=== PATIENT | female | born 1985 | race Caucasian/White ===

== ENCOUNTER 2016-10-21 19:26 | Observation (INO) | payer OTHER ==
--- NOTE | 2016-10-21 19:36 | EDPHY ---
H & P Time Seen by Provider: 10/21/16 19:32 HPI/ROS: CHIEF COMPLAINT: Allergic reaction. HISTORY OF PRESENT ILLNESS: The patient is a 31-year-old female, 22 weeks , presenting with an allergic reaction. The patient ate teddy just prior to arrival and almost immediately developed lip and tongue swelling, associated with hoarseness of her voice and chest tightness. Associated with itching of her palms, soles and ears. No rash. Prior allergic reaction have consisted of itching palms and feet. No prior episodes of anaphylaxis. REVIEW OF SYSTEMS: A comprehensive 10 point review of systems is otherwise negative aside from elements mentioned in the history of present illness. Past Medical/Surgical History: Currently 22 weeks . Social History: . Nonsmoker. Physical Exam: General Appearance: Alert, anxious Eyes: Pupils equal and round, no periorbital swelling ENT, Mouth: Mucous membranes moist, Mild lip and tongue swelling, voice is hoarse. Neck: Normal inspection, no stridor Respiratory: Lungs are clear to auscultation, no wheezing Cardiovascular: Regular rate and rhythm Neurological: A&O, nonfocal exam Skin: NO hives Extremities: No swelling Psychiatric: Mood and affect normal Constitutional: Initial Vital Signs Temperature (C) 36.8 C 10/21/16 19:27 Heart Rate 109 H 10/21/16 19:27 Respiratory Rate 20 10/21/16 19:27 Blood Pressure 112/78 10/21/16 19:27 O2 Sat (%) 96 10/21/16 19:27 O2 Delivery Mode Room Air O2 (L/minute) 2 Allergies/Adverse Reactions: No Known Allergies Allergy (Unverified 10/21/16 19:40) Home Medications: Medication Instructions Recorded Aspirin [Aspirin 81mg (*)] 81 mg PO DAILY 10/21/16 EPINEPHRINE [EPIPEN] 0.3 mg IM ONCE #2 syr 10/21/16 Vit27&Calcium/Iron/FA 1 each PO DAILY 10/21/16 [ Rx 1 Tablet (RX)] predniSONE 40 mg PO DAILY #6 tab 10/21/16 Medical Decision Making ED Course/Re-evaluation: This patient presents with anaphylaxis. Patient received epinephrine IM. Benadryl and Solu-Medrol IV given. Albuterol neb given. I will continue to monitor the patient. heart tones: 150 8:15 p.m.: I reevaluated the patient, she is feeling much better, the swelling has resolved. She has intermittent abdominal cramping and is concerned about uterine contractions. Repeat heart tones 150s. 9:15 p.m.; the patient continues to feel much better and she has no recurrent swelling. She has occasional abdominal cramping. + movement. She will be sent to [facility] for monitoring. Differential Diagnosis: Differential diagnosis includes though it is not limited to laryngeal edema, bronchospasm, hypotension, angioedema. - Data Points Medications Given: Discontinued Medications Albuterol (Proventil Neb) 3 ml IH EDNOW ONE Stop: 10/21/16 19:43 Last Admin: 10/21/16 19:42 Dose: 3 ml Diphenhydramine HCl (Benadryl Injection) 25 mg IVP EDNOW ONE Stop: 10/21/16 19:43 Last Admin: 10/21/16 19:42 Dose: 25 mg Epinephrine HCl (Epinephrine) 0.3 mg IM EDNOW ONE Stop: 10/21/16 19:43 Last Admin: 10/21/16 19:42 Dose: 0.3 mg Methylprednisolone Sodium Succinate (Solu-Medrol) 125 mg IVP EDNOW ONE Stop: 10/21/16 19:43 Last Admin: 10/21/16 19:42 Dose: 125 mg Ranitidine HCl (Zantac) 50 mg IVP EDNOW ONE Stop: 10/21/16 19:43 Last Admin: 10/21/16 19:42 Dose: 50 mg Departure - Departure Disposition: Home, Routine, Self-Care Clinical Impression: Anaphylaxis Qualifiers: Encounter type: initial encounter Qualified Code(s): T78.2XXA - Anaphylactic shock, unspecified, initial encounter Condition: Good Instructions: Anaphylaxis (ED) Additional Instructions: Take Claritin in the morning and Benadryl at night while symptoms persist. Take the Prednisone tomorrow only if you have residual symptoms from the allergic reaction. Followup with your primary care physician as needed. Referrals: Juli Tate CNM [Certified Nurse Communication Center Coordinator] - As per Instructions Prescriptions: EPINEPHRINE [EPIPEN] 0.3 mg IM ONCE #2 syr predniSONE 40 mg PO DAILY #6 tab Report Scribed for: Majo Patterson Report Scribed by: Radha Pinedo Date of Report: 10/21/16 Time of Report: 19:36 Physician Review and Approval Statement: 10/21/16 19:36 Portions of this note were transcribed by a medical billing and coding specialist. I personally performed the history, physical exam, and medical decision-making; and confirmed the accuracy of the information in the transcribed note.
[2016-10-21 19:40] VITALS: TEMP 98.2
[2016-10-21] MEDS ORDERED: ALBUTEROL 3 ML DEYVIAL IH ONE (19:42)
[2016-10-21] MEDS ORDERED: RANITIDINE 50 MG/2 ML VIAL IVP ONE (19:42)
[2016-10-21] MEDS ORDERED: methylPREDNISolone SOD SUCC 125 MG/2 ML VIAL IVP ONE (19:42)
[2016-10-21 20:34] VITALS: BP 106/55; PULSE 99; RESP 18; O2SAT 97
[2016-10-21] MEDS ORDERED: methylPREDNISolone SOD SUCC 125 MG/2 ML VIAL ONE (21:00)
[2016-10-21] MEDS ORDERED: RANITIDINE 50 MG/2 ML VIAL ONE (21:00)
[2016-10-21] MEDS ORDERED: ALBUTEROL 3 ML DEYVIAL ONE (21:00)
== END 2016-10-21 22:50 | disposition home or self-care (01) ==
LOC: FLD 21:57
PROVIDERS: ADMIT Obstetrics & Gynecology; ATTEND Obstetrics & Gynecology
DX: T78.2XXA Anaphylactic shock, unspecified, initial encounter (principal); O99.89 Other specified diseases and conditions complicating pregnancy, childbirth and the puerperium; Z3A.22 22 weeks gestation of pregnancy
CPT/HCPCS: 59025; G0378; 96374; J0171; J1200; J2780